=== PATIENT | female | born 1990 | race American Indian/Alaskan Native ===

== ENCOUNTER 2017-05-02 15:20 | Emergency (ER) | payer BC, OTHER ==
[2017-05-02] MEDS ORDERED: Pantoprazole 40 MG Vial IVPUSH ONE (15:25)
[2017-05-02] MEDS ORDERED: Famotidine 20 MG/2 ML SDV IVPUSH ONE (15:25)
[2017-05-02] MEDS ORDERED: Sodium Chloride 0.9% 10 ML Syringe FLUSH PRN (15:25)
--- NOTE | 2017-05-02 15:25 | EDM.PDOC ---
ED HPI GENERAL MEDICAL PROBLEM - General Chief Complaint: Gastrointestinal Problem Stated Complaint: bloody emesis Time Seen by Provider: 05/02/17 15:20 Source of Information: Reports: Patient, Family (Father,), Old Records ([facility] EMR. No paper hospital chart available.), Significant Other History Limitations: Reports: No Limitations - History of Present Illness INITIAL COMMENTS - FREE TEXT/NARRATIVE: The patient was brought to the emergency room via private automobile by her father and significant other for evaluation of 6/10 right upper quadrant sharp abdominal pain and cramping associated with some nausea with 2 episodes of emesis to this point, however no hematemesis. She has also had 4 loose stools since early this morning with no history of gross hematochezia, melena, known exposure to infection/food poisoning, etc. There was a brief evaluation at the [facility] in [place] immediately prior to arrival with 8 mg of Zofran given IM in that facility and an apparent positive Gastroccult at that time. No other treatment was given. The patient does have a history of a distant upper GI bleed secondary to gastric ulcer as below, however she denies any recent ASA , NSAIDs, etc. use. Symptoms started at about 11:30 a.m. this morning. She has been using marijuana on a daily basis with previous tobacco use as below. The patient denies any chest pain/pressure, heart flutter, dizziness, orthostasis, orthopnea, diaphoresis, paresthesias, recent decreased exercise tolerance, or any other anginal-type symptoms. The patient also denies any recent fever, cough , wheezing, dyspnea, etc.. Onset: Today, Sudden Onset Date: 05/02/17 Onset Time: 11:30 Duration: Constant Location: Reports: Abdomen. Denies: Head, Face, Neck, Back, Pelvis, Upper Extremity, Left, Upper Extremity, Right, Lower Extremity, Left, Lower Extremity , Right, Generalized, Radiates to Quality: Reports: Same as Previous Episode, Sharp Severity: Moderate Improves with: Reports: None Worsens with: Reports: None Context: Reports: Other (As above) Associated Symptoms: Reports: Nausea/Vomiting. Denies: Confusion, Chest Pain, Cough, Diaphoresis, Fever/Chills, Loss of Appetite, Malaise, Rash, Shortness of Breath, Weakness Treatments CHART PICKER: Reports: Other Medication(s) (As above). Denies: Aspirin, NSAIDS Abdominal Pain Score (Numeric/FACES): 6 - Related Data Allergies Allergy/AdvReac Type Severity Reaction Status Date / Time No Known Allergies Allergy Verified 05/02/17 15:58 Home Meds: Home Meds Escitalopram [Lexapro] 20 mg PO DAILY 05/02/17 [History] Omeprazole 20 mg PO BID #1 05/02/17 [Rx] Promethazine [Phenergan] 25 mg PO Q6H PRN #10 tablet 05/02/17 [Rx] Past Medical History HEENT History: Reports: Allergic Rhinitis, Impaired Vision. Denies: Cataract, Glaucoma, Hard of Hearing, Macular Degeneration, Retinal Detachment Other HEENT History: PRK in 2011 as below with no current glasses required Cardiovascular History: Reports: None, Other (See Below). Denies: Afib, Aneurysm, Arrhythmia, Blood Clots/VTE/DVT, CAD, Heart Failure, Heart Murmur, High Cholesterol, Hypertension, CO, PVD, Syncope Other Cardiovascular History: Patient does not know her cholesterol status Respiratory History: Reports: Asthma. Denies: COPD, Intubation, Previous, PE, Pneumothorax, Sleep Apnea Gastrointestinal History: Reports: Gastritis, GI Bleed, PUD, Other (See Below). Denies: Celiac Disease, Cholelithiasis, Chronic Constipation, Chronic Diarrhea , Colon Polyp, Fecal Incontinence, GERD, Hepatitis, Helicobacter Pylori, Inflammatory Bowel Disease, Irritable Bowel Syndrome, Jaundice, Pancreatitis Other Gastrointestinal History: History of upper GI bleed secondary to gastric ulcer in about 2014 Genitourinary History: Reports: Renal Calculus, Other (See Below). Denies: Acute Renal Failure, Chronic Renal Insuffiency, Dialysis, STD, Urinary Incontinence, UTI, Recurrent Other Genitourinary History: History of recurrent urolithiasis initially at age 19 and then at age 24 with no procedures required and spontaneous passage [employer] History: Reports: Other (See Below) (Right ovarian cysts). Denies: Dysfunctional Uterine Bleeding, Endometriosis, Fibroids, : 0 LMP (Approximate): 3 Weeks Musculoskeletal History: Reports: Arthritis, Fracture, Osteoarthritis, Other ( See Below). Denies: Amputation, Back Pain, Chronic, Gout, Neck Pain, Chronic, RA, SLE Other Musculoskeletal History: Right elbow fracture at about age 6, recurrent tendinitis of the right wrist Neurological History: Reports: Concussion, Headaches, Chronic, Head Trauma, Migraines, Other (See Below). Denies: Cerebral Aneurysms, CVA, Neuropathy, Peripheral, Seizure, TIA Other Neuro History: Previous head concussion on 07/29/15 Psychiatric History: Reports: ADD, ADHD, Anxiety, Depression, Other (See Below) . Denies: Abuse, Victim of, Addiction, Psych Hospitalization(s), PTSD, Suicide Attempt, Suicidal Ideation Endocrine/Metabolic History: Reports: Obesity/BMI 30+. Denies: Diabetes, Type I , Diabetes, Type II, Hypothyroidism, IDDM, Osteopenia Hematologic History: Reports: None. Denies: Anemia, Blood Transfusion(s), Iron Deficiency Immunologic History: Reports: None. Denies: AIDS, HIV, SLE Oncologic (Cancer) History: Denies: Basal Cell Carcinoma, Hodgkin's Lymphoma, Leukemia, Lymphoma, Malignant Melanoma, Non-Hodgkin's Lymphoma, Squamous Cell Carcinoma Dermatologic History: Reports: None. Denies: Eczema, Psoriasis - Infectious Disease History Infectious Disease History: Reports: Chicken Pox, Mononucleosis (Age 9). Denies: C-Difficile, Helicobacter Pylori, Measles, Meningitis, MRSA, Mumps, Pertussis (Whooping Cough), Rubella, Scarlet Fever, Shingles, VRE - Past Surgical History Head Surgeries/Procedures: Reports: None HEENT Surgical History: Reports: Oral Surgery, Tonsillectomy, Other (See Below) . Denies: Adenoidectomy, Cataract Surgery, Eye Surgery, Laser Surgery, Myringotomy w Tube(s), Naso-Sinus Surgery Other HEENT Surgeries/Procedures: [place] teeth extraction 4 at about age 12, tonsillectomy at age 24, PRK in 2011 Cardiovascular Surgical History: Reports: None. Denies: Varicose Respiratory Surgical History: Reports: None. Denies: Thoracentesis GI Surgical History: Reports: EGD, Other (See Below). Denies: Appendectomy, Cholecystectomy, Colonoscopy, Hernia, Abdominal, Hernia, Inguinal, Hernia Repair /Other, Polypectomy Other GI Surgeries/Procedures: EGD in 2015 secondary to bleeding gastric ulcer as above with no follow-up Female Surgical History: Reports: None. Denies: Breast Biopsy, Section, D&C, Hysterectomy, Salpingo-Oophorectomy, Tubal Ligation Endocrine Surgical History: Reports: None. Denies: Thyroidectomy Neurological Surgical History: Reports: None. Denies: C-Spine, Discectomy, Laminectomy, Lumbar Spine, Sacral Spine, Spinal Fusion, Vertebroplasty Musculoskeletal Surgical History: Reports: None. Denies: Arthroscopic Procedure , Carpal Tunnel, Ganglion Cyst, Joint Replacement, ORIF, Shoulder Surgery Oncologic Surgical History: Reports: None Dermatological Surgical History: Reports: None - Past Imaging History Past Imaging History: Reports: CAT Scan (CT of the head on 01/04/16) Social & Family History - Tobacco Use Smoking Status *Q: Former Smoker Tobacco Use Within Last Twelve Months: Cigarettes Years of Tobacco use: 0 Packs/Tins Daily: 0 Used Tobacco, but Quit: Yes Month Tobacco Last Used: Last use in February 2017 with only brief one month use Smoking Cessation Information Provided To Patient: No Second Hand Smoke Exposure: No Second Hand Smoke Education Provided: No - Caffeine Use Caffeine Use: Reports: Energy Drinks (1 can per night), Soda (1 soda every other day). Denies: Coffee, Tea - Alcohol Use Alcohol Use History: Yes Days Per Week of Alcohol Use: 1 (No previous DWIs, problems with alcohol abuse, etc.) Number of Drinks Per Day: 5 (Usually beer) Total Drinks Per Week: 5 Alcohol Use in Last Twelve Months: Yes Alcohol Use Frequency: Socially - Recreational Drug Use Recreational Drug Use: Yes Drug Use in Last 12 Months: Yes Recreational Drug Type: Reports: Marijuana/Hashish (Started use at age 23 using on a daily basis with half-time per day). Denies: Amphetamines (Speed), Cocaine , Heroin, Inhalants (Glues, Solvents, Aerosols), LSD (Acid), Methamphetamine, Morphine - Living Situation & Occupation Living situation: Reports: Single, with Significant Other Occupation: Employed ([employer] at [employer]) ED ROS GENERAL - Review of Systems Review Of Systems: See Below Constitutional: Denies: Fever, Chills, Malaise, Weakness, Fatigue, Night Sweats , Diaphoresis, Decreased Appetite, Weight Loss, Weight Gain HEENT: Reports: No Symptoms. Denies: Contact Lenses, Ear Discharge, Ear Pain, Glasses, Hearing Loss, Rhinitis, Sinus Problem, Throat Pain, Throat Swelling, Vertigo Respiratory: Reports: No Symptoms. Denies: Shortness of Breath, Wheezing, Pleuritic Chest Pain, Cough, Hemoptysis Cardiovascular: Reports: No Symptoms. Denies: Chest Pain, Blood Pressure Problem, Dyspnea on Exertion, Edema, Lightheadedness, Orthopnea, Palpitations, Syncope Endocrine: Reports: No Symptoms. Denies: Fatigue GI/Abdominal: Reports: Abdominal Pain, Diarrhea, Nausea, Vomiting. Denies: Anorexia, Black Stool, Bloody Stool, Constipation, Decreased Appetite, Difficulty Swallowing, Distension, Flatus, Hematemesis, Hematochezia, Melena, Mucous in Stool, Stool Incontinence : Reports: No Symptoms. Denies: Discharge, Dysuria, Flank Pain, Frequency, Hematuria, Incontinence, Irregular Menses, Pain, Urgency Musculoskeletal: Reports: No Symptoms. Denies: Neck Pain, Shoulder Pain, Arm Pain, Back Pain, Leg Pain Skin: Reports: No Symptoms. Denies: Jaundice, Pallor, Diaphoresis, Bruising, Rash Neurological: Reports: No Symptoms. Denies: Confusion, Dizziness, Headache, Numbness, Paresthesia, Tingling, Weakness Psychiatric: Reports: No Symptoms. Denies: Agitation, Anxiety, Confusion, Depression, Hallucinations Hematologic/Lymphatic: Reports: No Symptoms Immunologic: Reports: No Symptoms ED EXAM, GI/ABD - Physical Exam Exam: See Below Exam Limited By: No Limitations General Appearance: Alert, WD/WN, No Apparent Distress, Anxious (Mild) Eyes: Bilateral: Normal Appearance (No nystagmus), EOMI (PERRLA) Ears: Normal External Exam, Normal Canal, Hearing Grossly Normal, Normal TMs Nose: Normal Inspection, Normal Mucosa, No Blood, Other (Moist oral mucosa) Throat/Mouth: Normal Inspection, Normal Lips, Normal Teeth, Normal Gums, Normal Oropharynx, Normal Voice, No Airway Compromise. No: Dysphagia, Perioral Cyanosis Head: Atraumatic, Normocephalic. No: Facial Swelling, Facial Tenderness, Sinus Tenderness Neck: Normal Inspection, Supple, Non-Tender, Full Range of Motion. No: Lymphadenopathy (L), Lymphadenopathy (R), Thyromegaly Respiratory/Chest: No Respiratory Distress, Lungs Clear, Normal Breath Sounds, No Accessory Muscle Use, Chest Non-Tender. No: Pleural Rub, Retractions Cardiovascular: Normal Peripheral Pulses, Regular Rate, Rhythm, No Edema, No Gallop, No JVD, No Murmur, No Rub. No: Gallop/S3, Gallop/S4, Friction Rub GI/Abdominal Exam: Normal Bowel Sounds, Soft, Non-Tender, No Organomegaly, No Distention, No Abnormal Bruit, No Mass, Pelvis Stable. No: Guarding (Female) Exam: Deferred Rectal (Female) Exam: Normal Exam, Normal Rectal Tone, Heme - Stool. No: Black Stool, Bloody Stool, Tenderness (No Eren space tenderness) Back Exam: Normal Inspection, Full Range of Motion. No: CVA Tenderness (L), CVA Tenderness (R), Muscle Spasm Extremities: Normal Inspection, Normal Range of Motion, Non-Tender, No Pedal Edema, Normal Capillary Refill. No: Ruth's Sign Neurological: Alert, Oriented, CN II-XII Intact, Normal Cognition, Normal Gait, No Motor/Sensory Deficits, Other (No clinical orthostasis) Psychiatric: Anxious (Mild), Depressed Mood (Borderline) Skin Exam: Warm, Dry, Intact, Normal Color, No Rash, Stud(s) (Right nasal, multiple bilateral auricular region, and left lateral periorbital), Tattoo(s) ( Multiple). No: Diaphoretic, Ecchymosis, Jaundice, Pallor, Petechiae, Wound/ Incision Lymphatic: No Adenopathy Course - Vital Signs Last Recorded V/S: Last Vital Signs Temp 37.0 C 05/02/17 15:22 Pulse 88 05/02/17 15:50 Resp 20 05/02/17 15:50 BP 104/86 05/02/17 15:50 Pulse Ox 98 05/02/17 15:50 Vital Signs - 24 hr 05/02/17 05/02/17 05/02/17 15:22 15:35 15:50 Temperature [ 37.0 C Oral] Pulse, 86 84 88 Peripheral [ Left Brachial] Respiratory 16 20 20 Rate Blood Pressure 144/99 H 129/84 104/86 [Left Upper Arm ] O2 Sat by Pulse 98 99 98 Oximetry - Orders/Labs/Meds Orders: Active Orders 24 hr Category Date Time Status Peripheral IV Care [RC] . DIRECTED Care 05/02/17 15:25 Active Nothing Per Oral Diet [DIET] Diet 05/02/17 Breakfast Active Abdomen Series w Chest 1V [CR] Stat Exams 05/02/17 15:25 Taken H PYLORI STOOL ANTIGEN [MREF] Urgent Lab 05/02/17 15:25 Uncollected Sodium Chloride 0.9% [Saline Flush] Med 05/02/17 15:25 Active 10 ml FLUSH ASDIRECTED PRN Obtain Past Medical Record [OM.PC] Urgent Oth 05/02/17 15:25 Active Peripheral IV Insertion Adult [OM.PC] Stat Oth 05/02/17 15:25 Ordered Resuscitation Status Stat Resus Stat 05/02/17 15:25 Ordered Medication Orders Sodium Chloride (Saline Flush) 10 ml FLUSH ASDIRECTED PRN PRN Reason: Keep Vein Open Last Admin: 05/02/17 16:54 Dose: 10 ml Labs: Laboratory Tests 05/02/17 05/02/17 05/02/17 Range/Units 15:36 15:36 15:36 WBC 11.3 H (4.0-10.2) K/uL RBC 4.98 (3.77-5.09) M/uL Hgb 15.5 (11.7-15.5) g/dL Hct 43.5 (34.0-46.0) % MCV 87.3 (84.0-98.0) fL MCH 31.1 (28.2-33.3) pg MCHC 35.6 (31.7-36.0) g/dL RDW 12.1 (11.2-14.1) % Plt Count 334 (150-350) K/uL Neut % (Auto) 67.2 (45.0-80.0) % Lymph % (Auto) 24.3 (10.0-50.0) % [place] % (Auto) 6.3 (2.0-14.0) % Eos % (Auto) 2.0 (0.0-5.0) % Baso % (Auto) 0.2 (0.0-2.0) % Neut # (Auto) 7.63 H (1.40-7.00) K/uL Lymph # (Auto) 2.75 (0.50-3.50) K/uL [place] # (Auto) 0.71 (0.00-1.00) K/uL Eos # (Auto) 0.23 (0.00-0.50) K/uL Baso # (Auto) 0.02 (0.00-0.20) K/uL PT 10.3 (9.8-11.7) SEC INR 1.0 APTT 28.3 (23.5-30.0) SEC Sodium (136-145) mmol/L Potassium (3.5-5.1) mmol/L Chloride (98-107) mmol/L Carbon Dioxide (21.0-32.0) mmol/L BUN (7-18) mg/dL Creatinine (0.51-1.17) mg/dL Est Cr Clr Drug Dosing mL/min Estimated GFR (MDRD) mL/min Glucose (74-106) mg/dL Lactic Acid (0.4-2.0) mmol/L Uric Acid (2.6-7.2) mg/dL Calcium (8.5-10.1) mg/dL Magnesium (1.8-2.4) mg/dL Total Bilirubin (0.2-1.0) mg/dL AST (15-37) U/L ALT (12-78) U/L Alkaline Phosphatase (46-116) IU/L Total Protein (6.4-8.2) g/dL Albumin (3.4-5.0) g/dL Amylase 39 (25-115) U/L Lipase (73-393) U/L HCG, Qual (NEGATIVE) Specimen Type Urine Color Urine Appearance Urine pH (5.0-9.0) Ur Specific [place] (1.005-1.030) Urine Protein (NEGATIVE) mg/dL Urine Glucose (UA) (NEGATIVE) mg/dL Urine Ketones (NEGATIVE) mg/dL Urine Occult Blood (NEGATIVE) Urine Nitrite (NEGATIVE) Urine Bilirubin (NEGATIVE) Urine Urobilinogen (0.2-1.0) E.U./dL Ur Leukocyte Esterase (NEGATIVE) Urine RBC /HPF Urine WBC /HPF Ur Epithelial Cells /LPF Urine Bacteria (NONE TO FEW) /HPF 05/02/17 05/02/17 05/02/17 Range/Units 15:36 15:36 15:36 WBC (4.0-10.2) K/uL RBC (3.77-5.09) M/uL Hgb (11.7-15.5) g/dL Hct (34.0-46.0) % MCV (84.0-98.0) fL MCH (28.2-33.3) pg MCHC (31.7-36.0) g/dL RDW (11.2-14.1) % Plt Count (150-350) K/uL Neut % (Auto) (45.0-80.0) % Lymph % (Auto) (10.0-50.0) % [place] % (Auto) (2.0-14.0) % Eos % (Auto) (0.0-5.0) % Baso % (Auto) (0.0-2.0) % Neut # (Auto) (1.40-7.00) K/uL Lymph # (Auto) (0.50-3.50) K/uL [place] # (Auto) (0.00-1.00) K/uL Eos # (Auto) (0.00-0.50) K/uL Baso # (Auto) (0.00-0.20) K/uL PT (9.8-11.7) SEC INR APTT (23.5-30.0) SEC Sodium 137 (136-145) mmol/L Potassium 4.1 (3.5-5.1) mmol/L Chloride 102 (98-107) mmol/L Carbon Dioxide 24.0 (21.0-32.0) mmol/L BUN 10 (7-18) mg/dL Creatinine 0.62 (0.51-1.17) mg/dL Est Cr Clr Drug Dosing 107.80 mL/min Estimated GFR (MDRD) > 60 mL/min Glucose 87 (74-106) mg/dL Lactic Acid 0.7 (0.4-2.0) mmol/L Uric Acid 6.0 (2.6-7.2) mg/dL Calcium 9.5 (8.5-10.1) mg/dL Magnesium 1.7 L (1.8-2.4) mg/dL Total Bilirubin 0.6 (0.2-1.0) mg/dL AST 16 (15-37) U/L ALT 21 (12-78) U/L Alkaline Phosphatase 64 (46-116) IU/L Total Protein 8.0 (6.4-8.2) g/dL Albumin 4.4 (3.4-5.0) g/dL Amylase (25-115) U/L Lipase 108 (73-393) U/L HCG, Qual Negative (NEGATIVE) Specimen Type Urine Color Urine Appearance Urine pH (5.0-9.0) Ur Specific [place] (1.005-1.030) Urine Protein (NEGATIVE) mg/dL Urine Glucose (UA) (NEGATIVE) mg/dL Urine Ketones (NEGATIVE) mg/dL Urine Occult Blood (NEGATIVE) Urine Nitrite (NEGATIVE) Urine Bilirubin (NEGATIVE) Urine Urobilinogen (0.2-1.0) E.U./dL Ur Leukocyte Esterase (NEGATIVE) Urine RBC /HPF Urine WBC /HPF Ur Epithelial Cells /LPF Urine Bacteria (NONE TO FEW) /HPF 05/02/17 Range/Units 16:23 WBC (4.0-10.2) K/uL RBC (3.77-5.09) M/uL Hgb (11.7-15.5) g/dL Hct (34.0-46.0) % MCV (84.0-98.0) fL MCH (28.2-33.3) pg MCHC (31.7-36.0) g/dL RDW (11.2-14.1) % Plt Count (150-350) K/uL Neut % (Auto) (45.0-80.0) % Lymph % (Auto) (10.0-50.0) % [place] % (Auto) (2.0-14.0) % Eos % (Auto) (0.0-5.0) % Baso % (Auto) (0.0-2.0) % Neut # (Auto) (1.40-7.00) K/uL Lymph # (Auto) (0.50-3.50) K/uL [place] # (Auto) (0.00-1.00) K/uL Eos # (Auto) (0.00-0.50) K/uL Baso # (Auto) (0.00-0.20) K/uL PT (9.8-11.7) SEC INR APTT (23.5-30.0) SEC Sodium (136-145) mmol/L Potassium (3.5-5.1) mmol/L Chloride (98-107) mmol/L Carbon Dioxide (21.0-32.0) mmol/L BUN (7-18) mg/dL Creatinine (0.51-1.17) mg/dL Est Cr Clr Drug Dosing mL/min Estimated GFR (MDRD) mL/min Glucose (74-106) mg/dL Lactic Acid (0.4-2.0) mmol/L Uric Acid (2.6-7.2) mg/dL Calcium (8.5-10.1) mg/dL Magnesium (1.8-2.4) mg/dL Total Bilirubin (0.2-1.0) mg/dL AST (15-37) U/L ALT (12-78) U/L Alkaline Phosphatase (46-116) IU/L Total Protein (6.4-8.2) g/dL Albumin (3.4-5.0) g/dL Amylase (25-115) U/L Lipase (73-393) U/L HCG, Qual (NEGATIVE) Specimen Type Urincc Urine Color Yellow Urine Appearance Clear Urine pH 5.5 (5.0-9.0) Ur Specific [place] 1.015 (1.005-1.030) Urine Protein Negative (NEGATIVE) mg/dL Urine Glucose (UA) Negative (NEGATIVE) mg/dL Urine Ketones 40 H (NEGATIVE) mg/dL Urine Occult Blood Negative (NEGATIVE) Urine Nitrite Negative (NEGATIVE) Urine Bilirubin Negative (NEGATIVE) Urine Urobilinogen 0.2 (0.2-1.0) E.U./dL Ur Leukocyte Esterase Negative (NEGATIVE) Urine RBC 0-5 /HPF Urine WBC 0-5 /HPF Ur Epithelial Cells Rare /LPF Urine Bacteria Rare (NONE TO FEW) /HPF Urine specimen sent up for culture and sensitivity Microbiology 05/02/17 15:55 Gastric Fluid Gastric Occult Blood - Final 05/02/17 15:55 Stool / Feces Stool Occult Blood (BALDO) - Final NEGATIVE OCCULT BLOOD Note mildly positive Gastroccult Meds: Medications Generic Name Dose Route Start Last Admin Trade Name Freq PRN Reason Stop Dose Admin Sodium Chloride 10 ml 05/02/17 15:25 05/02/17 16:54 Saline Flush FLUSH 10 ml ASDIRECTED PRN Administration Keep Vein Open Discontinued Medications Generic Name Dose Route Start Last Admin Trade Name Freq PRN Reason Stop Dose Admin Famotidine 40 mg 05/02/17 15:25 05/02/17 16:07 Pepcid IVPUSH 05/02/17 15:26 40 mg ONETIME ONE Administration Pantoprazole Sodium 40 mg 05/02/17 15:25 05/02/17 16:07 Protonix Iv IVPUSH 05/02/17 15:26 40 mg ONETIME ONE Administration - Radiology Interpretation Free Text/Narrative:: Acute abdominal x-rays shows evidence of moderate pulmonary obstructive disease with no pulmonary infiltrates, cardiomegaly, CHF, pneumothorax, etc.. Mild increased bowel gaseous pattern nonspecific in nature with moderate amounts of diffuse stool with no free air, ileus, obstruction, fluid levels, etc. Departure - Departure Time of Disposition: 17:10 Disposition: Home, Self-Care 01 Condition: Good Clinical Impression: Viral gastroenteritis, Peptic reflux disease, Mixed anxiety depressive disorder , Hypomagnesemia Abdominal pain Qualifiers: Abdominal location: right upper quadrant Qualified Code(s): R10.11 - Right upper quadrant pain Osteoarthritis Qualifiers: Osteoarthritis location: multiple joints Osteoarthritis type: primary Qualified Code(s): M15.0 - Primary generalized (osteo)arthritis Allergic rhinitis Qualifiers: Chronicity: unspecified Allergic rhinitis trigger: unspecified Allergic rhinitis seasonality: unspecified seasonality Qualified Code(s): J30.9 - Allergic rhinitis, unspecified Asthma Qualifiers: Asthma severity: mild Asthma persistence: intermittent Asthma complication type : uncomplicated Qualified Code(s): J45.20 - Mild intermittent asthma, uncomplicated - Discharge Information Prescriptions: Promethazine [Phenergan] 25 mg PO Q6H PRN #10 tablet PRN Reason: Nausea/Vomiting Instructions: Viral Gastroenteritis, Adult, [id number], Pantoprazole injection, Abdominal Pain, Adult, [id number], Famotidine injection Referrals: Daryl Love MD [Primary Care Provider] - Forms: ED Department Discharge Additional Instructions: 1. Followup with your regular provider in 4 days as directed for reevaluation and recommended repeat CBC, comprehensive metabolic panel, and magnesium level. 2. Tylenol 650 mg by mouth every 4 hours when necessary as directed. Strict no use of any NSAIDs including OTC ibuprofen, Aleve, etc. 3. Work excuse- See Form 4. Stop all use of marijuana, energy drinks, etc. as discussed 5. [place] diet including encouragement of oral fluids such as sports drinks, etc. for 24-48 hours as directed. Advance to regular diet as tolerated thereafter. - Problem List & Annotations (1) Abdominal pain SNOMED Code(s): 38655461 Code(s): R10.9 - UNSPECIFIED ABDOMINAL PAIN Status: Acute Current Visit: Yes Onset Date: 05/02/17 Annotation/Comment:: Symptoms likely related to gastroenteritis with symptoms improved at time of discharge, including good response to outpatient IM Zofran as above. [place] work excuse provided. Note previous history of distant peptic ulcer disease and current marijuana use, however no significant NSAIDs, etc. High-dose IV Protonix and IV Pepcid given as GI prophylaxis. Close follow-up by her regular provider as per discharge instructions with consideration of repeat EGD depending on her clinical course. Stool specimen could not be obtained for H. pylori evaluation with negative Hemoccult as above. Mildly Positive Gastroccult likely secondary to mild emesis but no hematemesis, etc. Qualifiers: Abdominal location: right upper quadrant Qualified Code(s): R10.11 - Right upper quadrant pain (2) Viral gastroenteritis SNOMED Code(s): 754475522 Code(s): A08.4 - VIRAL INTESTINAL INFECTION, UNSPECIFIED Status: Acute Priority: High Current Visit: Yes Onset Date: 05/02/17 Annotation/Comment: : As above. Ketones mildly elevated in the urine but no clinical evidence of significant dehydration. Oral fluids to be encouraged at home as per discharge instructions (3) Peptic reflux disease SNOMED Code(s): 44766167 Code(s): K21.9 - GASTRO-ESOPHAGEAL REFLUX DISEASE WITHOUT ESOPHAGITIS Status: Chronic Priority: Medium Current Visit: Yes Annotation/Comment:: As above. Her Prilosec will be increased to twice a day regimen secondary to current symptoms with close follow-up as above (4) Osteoarthritis SNOMED Code(s): 846861134 Code(s): M19.90 - UNSPECIFIED OSTEOARTHRITIS, UNSPECIFIED SITE Status: Chronic Priority: Medium Current Visit: Yes Annotation/Comment:: Stable by history Qualifiers: Osteoarthritis location: multiple joints Osteoarthritis type: primary Qualified Code(s): M15.0 - Primary generalized (osteo)arthritis (5) Allergic rhinitis SNOMED Code(s): 75491076 Code(s): J30.9 - ALLERGIC RHINITIS, UNSPECIFIED Status: Chronic Priority : Medium Current Visit: Yes Annotation/Comment:: Stable by history with no current medical therapy required Qualifiers: Chronicity: unspecified Allergic rhinitis trigger: unspecified Allergic rhinitis seasonality: unspecified seasonality Qualified Code(s): J30.9 - Allergic rhinitis, unspecified (6) Asthma SNOMED Code(s): 242995562 Code(s): J45.909 - UNSPECIFIED ASTHMA, UNCOMPLICATED Status: Chronic Priority: Medium Current Visit: Yes Annotation/Comment:: Stable by history with no current medical therapy required Qualifiers: Asthma severity: mild Asthma persistence: intermittent Asthma complication type: uncomplicated Qualified Code(s): J45.20 - Mild intermittent asthma, uncomplicated (7) Mixed anxiety depressive disorder SNOMED Code(s): 391880052 Code(s): F41.8 - OTHER SPECIFIED ANXIETY DISORDERS Status: Chronic Priority: Medium Current Visit: Yes Annotation/Comment:: Currently under Medical therapy. Stable by history (8) Hypomagnesemia SNOMED Code(s): 959773483 Code(s): E83.42 - HYPOMAGNESEMIA Status: Acute Priority: Medium Current Visit: Yes Onset Date: 05/02/17 Annotation/Comment:: Observe for now with close follow-up by regular provider - Problem List Review Problem List Initiated/Reviewed/Updated: Yes - My Orders Last 24 Hours: My Active Orders 05/02/17 15:25 Peripheral IV Care [RC] . DIRECTED Abdomen Series w Chest 1V [CR] Stat H PYLORI STOOL ANTIGEN [MREF] Urgent Sodium Chloride 0.9% [Saline Flush] 10 ml FLUSH ASDIRECTED PRN Obtain Past Medical Record [OM.PC] Urgent Peripheral IV Insertion Adult [OM.PC] Stat Resuscitation Status Stat 05/02/17 Breakfast Nothing Per Oral Diet [DIET] - Assessment/Plan Last 24 Hours: My Active Orders 05/02/17 15:25 Peripheral IV Care [RC] . DIRECTED Abdomen Series w Chest 1V [CR] Stat H PYLORI STOOL ANTIGEN [MREF] Urgent Sodium Chloride 0.9% [Saline Flush] 10 ml FLUSH ASDIRECTED PRN Obtain Past Medical Record [OM.PC] Urgent Peripheral IV Insertion Adult [OM.PC] Stat Resuscitation Status Stat 05/02/17 Breakfast Nothing Per Oral Diet [DIET] Assessment:: As above Plan: As above. Extensive precautions were given to the patient, who is in agreement with the treatment plan. See Patient Instructions for further treatment and plan.
[2017-05-02 15:54] LABS: CHLORIDE,CL 102 mmol/L (98-107); SODIUM,NA 137 mmol/L (136-145)
[2017-05-02 17:45] VITALS: BP 104/86
== END 2017-05-02 17:10 | disposition home or self-care (01) ==
LOC: LL.ED 15:20
DX: A08.4 Viral intestinal infection, unspecified (principal); K21.9 Gastro-esophageal reflux disease without esophagitis; F41.8 Other specified anxiety disorders; E83.42 Hypomagnesemia; J30.9 Allergic rhinitis, unspecified; J45.20 Mild intermittent asthma, uncomplicated; M15.0 Primary generalized (osteo)arthritis; Z79.899 Other long term (current) drug therapy; Z87.891 Personal history of nicotine dependence
CPT/HCPCS: 36415; 74022; 80053; 81001; 82150; 82271; 82272; 83605; 83690; 83735; 84550; 84703; 85025; 85610; 85730; 96374; 96375; 99284; C9113; J7050; S0028